=== PATIENT | male | born 1960 | race Caucasian/White ===

== ENCOUNTER 2018-09-23 13:04 | Emergency (ER) | payer SELFPAY ==
[2018-09-23 13:31] VITALS: BP 180/110
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
== END 2018-09-23 13:38 | disposition home or self-care (01) ==
LOC: ED 13:04
DX: M25.512 Pain in left shoulder (principal); V43.52XA Car driver injured in collision with other type car in traffic accident, initial encounter; Y92.410 Unspecified street and highway as the place of occurrence of the external cause; Y99.9 Unspecified external cause status
CPT/HCPCS: 99282

== ENCOUNTER 2018-09-24 03:10 | Emergency (ER) | payer OTHER ==
--- NOTE | 2018-09-24 04:06 | ED ---
GI/ HPI - HPI Summary HPI Summary: This pt is a 58 Y/O M presenting to [facility] with a CC of urinary retention since 1000 09/23/18. He stated that he hasnt urinated in almost 24 hours and that the pain is increasing. He stated that he is currently at a 9/10 in severity. He stated that his flanks have been hurting for the duration of his urinary issues. He denies any SOB, CP, N/V, headaches, and cough. He stated no aggravating or alleviating symptoms. - History of Current Complaint Chief Complaint: EDUrogenitalProblems Time Seen by Provider: 09/24/18 03:36 Stated Complaint: UNABLE TO URINATE PER PT Hx Obtained From: Patient Timing: Constant Severity: Moderate Current Severity: Severe Pain Intensity: 9 Location of Pain: Flank Pain Radiates to: Flank Associated Signs and Symptoms: Positive: Flank Pain. Negative: Nausea, Vomiting , Fever, Chest Pain - Allergy/Home Medications Allergies/Adverse Reactions: Allergies Allergy/AdvReac Type Severity Reaction Status Date / Time No Known Allergies Allergy Verified 09/24/18 03:13 PMH/Surg Hx/FS Hx/Imm Hx Previously Healthy: Yes Respiratory History: Denies: Hx Pneumonia Sensory History: Reports: Hx Contacts or Glasses Opthamlomology History: Reports: Hx Contacts or Glasses Infectious Disease History: No Infectious Disease History: Denies: Traveled Outside the [place] in Last 30 Days - Family History Known Family History: Negative: Diabetes - Social History Alcohol Use: Occasionally Hx Substance Use: No Substance Use Type: Reports: None Hx Tobacco Use: No Smoking Status (MU): Never Smoked Tobacco Review of Systems Negative: Chest Pain Negative: Shortness Of Breath, Cough Negative: Vomiting, Nausea Positive: flank pain, other - Pt is unable to urinate Negative: Headache All Other Systems Reviewed And Are Negative: Yes Physical Exam - Summary Physical Exam Summary: VITAL SIGNS: Reviewed. GENERAL: Patient is a well-developed and nourished male who is lying comfortable in the stretcher. Patient is not in any acute respiratory distress. HEAD AND FACE: No signs of trauma. No ecchymosis, hematomas or skull depressions. No sinus tenderness. EYES: PERRLA, EOMI x 2, No injected conjunctiva, no nystagmus. EARS: Hearing grossly intact. Ear canals and tympanic membranes are within normal limits. MOUTH: Oropharynx within normal limits. NECK: Supple, trachea is midline, no adenopathy, no JVD, no carotid bruit, no c- spine tenderness, neck with full ROM CHEST: Symmetric, no tenderness at palpation LUNGS: Clear to auscultation bilaterally. No wheezing or crackles. CVS: Regular rate and rhythm, S1 and S2 present, no murmurs or gallops appreciated. ABDOMEN: Soft, non-tender. Suprapubic distension. Unable to check his prostate as the pt was uncooperative. No rebound no guarding, and no masses palpated. Bowel sounds are normal. EXTREMITIES: FROM in all major joints, no edema, no cyanosis or clubbing. NEURO: Alert and oriented x 3. No acute neurological deficits. Speech is normal and follows commands. SKIN: Dry and warm Triage Information Reviewed: Yes Vital Signs On Initial Exam: Initial Vitals Temp Pulse Resp BP Pulse Ox 96.5 F 106 16 209/131 96 09/24/18 03:12 09/24/18 03:12 09/24/18 03:12 09/24/18 03:12 09/24/18 03:12 Vital Signs Reviewed: Yes Diagnostics - Vital Signs Vital Signs Temp Pulse Resp BP Pulse Ox 09/24/18 03:12 96.5 F 106 16 209/131 96 - Laboratory Lab Statement: Any lab studies that have been ordered have been reviewed, and results considered in the medical decision making process. GIGU Course/Dx - Course Course Of Treatment: This pt is a 58 Y/O M presenting to [facility] with a CC of urinary retention since 1000 09/23/18. He stated that he hasnt urinated in almost 24 hours and that the pain is increasing. His PE found that he had suprapubic distension and that I was unable to check his prostate as the pt was uncooperative. He will be discharged home with a Dx of urine retention and be insturcted to follow up with urology in the morning. - Diagnoses Provider Diagnoses: Urine retention Discharge - Sign-Out/Discharge Documenting (check all that apply): Patient Departure - discharge Patient Received Moderate/Deep Sedation with Procedure: No - Discharge Plan Condition: Stable Disposition: HOME Patient Education Materials: Urinary Retention in Men (ED) Referrals: Edinson Stack MD [Medical Doctor] - [facility] [Outside] Additional Instructions: PLEASE RETURN TO THE ED IMMEDIATELY FOR WORSENING OR CONCERNING SYMPTOMS AND FOLLOW UP WITH [facility] IN 1-[address]YS[address] ALSO FOLLOW UP WITH DR. STACK, UROLOGY, TO SCHEDULE AN APPOINTMENT FOR FURTHER INVESTIGATION. - Attestation Statements Document Initiated by Scribe: Yes Documenting Scribe: Hank Manriquez Provider For Whom Scribe is Documenting (Include Credential): Clementine Onofre MD Scribe Attestation: I, Hank Manriquez, scribed for Clementine Onofre MD on 09/24/18 at 0409. Status of Scribe Document: Ready
[2018-09-24 04:47] VITALS: BP 160/92
== END 2018-09-24 04:46 | disposition home or self-care (01) ==
LOC: ED 03:10
DX: R33.9 Retention of urine, unspecified (principal)
CPT/HCPCS: 99283

== ENCOUNTER 2022-02-14 09:21 | Inpatient (IN) ==
[2022-02-14 10:13] LABS: ABS Eosinophils 0.1 10^3/ul (0-0.6); ABS Lymphocytes 1.9 10^3/ul (1.0-4.8); ABS Monocytes 1.1 10^3/ul (0-0.8); ABS Neutrophils 9.2 10^3/ul (1.5-7.7); Hematocrit 42 % (42-52); Hemoglobin 14.1 g/dL (14.0-18.0); Lymphocyte % 15.1 %; Mean Corpuscular HGB Conc 34 g/dL (31-36); Mean Corpuscular Hemoglobin 29 pg (27-31); Mean Corpuscular Volume 86 fL (80-94); Mean Platelet Volume 7.1 fL (7.4-10.4); Platelet Count 285 10^3/uL (150-450); Red Blood Count 4.88 10^6 /uL (4.18-5.48); Red Cell Distribution Width 14 % (10-15); White Blood Count 12.3 10^3/uL (3.5-10.8)
[2022-02-14 10:56] LABS: Albumin 4.6 g/dL (3.2-5.2); Calcium 9.5 mg/dL (8.6-10.3); Potassium 4.3 mmol/L (3.5-5.0); Total Bilirubin 0.7 mg/dL (0.2-1.0)
[2022-02-14 11:02] LABS: Albumin/Globulin Ratio 1.7 (1-3); Globulin 2.7 g/dL (2-4); Total Protein 7.3 g/dL (6.4-8.9); eGFR CKD-EPI 46.4 (>60)
[2022-02-14 11:41] LABS: High Sensitivity Troponin 1 Hr 6 pg/mL (<20)
[2022-02-14 11:49] LABS: Free T4 0.83 ng/dL (0.61-1.12)
[2022-02-14] MEDS ORDERED: Lactated Ringers 1000 ml BAG 1,000 ML IV ONE (13:42)
[2022-02-14] MEDS ORDERED: Lactated Ringers 1000 ml BAG 1,000 ML IV SCH (14:00)
[2022-02-14] MEDS ORDERED: ceFAZolin 2 GM in NS PREMIX 2 GM/100 ML BAG IVPB ONE (14:20)
[2022-02-14 17:33] LABS: Magnesium 1.9 mg/dL (1.9-2.7)
[2022-02-14 17:39] LABS: C Reactive Protein 7.56 mg/L (<8.01)
[2022-02-15 04:06] LABS: Urine Appearance Clear; Urine Bilirubin Negative (Negative); Urine Blood Negative (Negative); Urine Color Straw; Urine Glucose Negative (Negative); Urine Ketones Negative (Negative); Urine Nitrite Negative (Negative); Urine Protein Negative (Negative); Urine Specific Gravity 1.012 (1.002-1.030); Urine Urobilinogen Negative (Negative)
[2022-02-15 06:07] LABS: Hematocrit 42 % (42-52); Mean Corpuscular HGB Conc 34 g/dL (31-36); Mean Corpuscular Hemoglobin 29 pg (27-31); Mean Corpuscular Volume 86 fL (80-94); Mean Platelet Volume 7.3 fL (7.4-10.4); Platelet Count 262 10^3/uL (150-450); Red Blood Count 4.85 10^6 /uL (4.18-5.48); Red Cell Distribution Width 14 % (10-15); White Blood Count 11.3 10^3/uL (3.5-10.8)
[2022-02-15 06:16] LABS: Activated Partial Thrombo Time 30.1 seconds (26.0-38.0); INR 1.05 (0.88-1.18)
[2022-02-15 06:51] LABS: Calcium 9.4 mg/dL (8.6-10.3); Magnesium 1.9 mg/dL (1.9-2.7); Potassium 4.2 mmol/L (3.5-5.0)
[2022-02-15 06:57] LABS: eGFR CKD-EPI 80.7 (>60)
[2022-02-15] MEDS ORDERED: Midazolam 5 mg/5 ml VIAL 1 mg/ml 5 ml VIAL (5 mg) ONE ×2 (08:45→09:27)
[2022-02-15] MEDS ORDERED: fentaNYL 100 mcg/2 ml 50 MCG/ML VIAL ONE (08:45)
[2022-02-15] MEDS ORDERED: Flumazenil 0.5 mg/5 ml 0.1 MG/ML 5 ml VIAL ONE (08:46)
[2022-02-15] MEDS ORDERED: Naloxone 0.4 mg VIAL 0.4 mg/ml 1 ml VIAL ONE (08:46)
[2022-02-15] MEDS ORDERED: Iohexol 180 (CONTRAST) 10 ML SDV IV ONE (08:47)
[2022-02-15] MEDS: ceFAZolin 2 GM in NS PREMIX 2 GM/100 ML BAG IVPB ONE ×2 (09:06→11:08)
[2022-02-15] MEDS ORDERED: Iohexol 300 (CONTRAST) 10 ML SDV ONE (09:08)
[2022-02-15] MEDS ORDERED: Lidocaine 1% VIAL 10 MG/ML VIAL 30 ML ONE (09:21)
[2022-02-15] MEDS ORDERED: Enoxaparin 40 MG/0.4 ML SYR SUBCUT SCH (17:00)
[2022-02-15] MEDS: ceFAZolin 1 GM ADVAN 1 GM in NS 0.9% 50 ML 50 ML IVPB SCH (17:21)
[2022-02-16] MEDS: ceFAZolin 1 GM ADVAN 1 GM in NS 0.9% 50 ML 50 ML IVPB SCH ×2 (00:07→10:08)
[2022-02-16 06:01] LABS: Hematocrit 40 % (42-52); Hemoglobin 13.2 g/dL (14.0-18.0); Mean Corpuscular HGB Conc 33 g/dL (31-36); Mean Corpuscular Hemoglobin 28 pg (27-31); Mean Corpuscular Volume 86 fL (80-94); Platelet Count 229 10^3/uL (150-450); Red Blood Count 4.66 10^6 /uL (4.18-5.48); Red Cell Distribution Width 13 % (10-15); White Blood Count 12.4 10^3/uL (3.5-10.8)
[2022-02-16 06:39] LABS: Calcium 9.1 mg/dL (8.6-10.3); Magnesium 1.9 mg/dL (1.9-2.7); eGFR CKD-EPI 98.7 (>60)
[2022-02-16 12:40] VITALS: BP 143/82
[2022-02-18 17:40] LABS: Anaplasma phagocytophilum Negative (Negative); B. miyamotoi PCR, B Negative (Negative); Babesia divergens/MO-1 Negative (Negative); Babesia ducani Negative (Negative); Ehrlichia chaffeensis Negative (Negative); Ehrlichia ewingii/canis Negative (Negative); Ehrlichia muris eauclairensis Negative (Negative)
== END 2022-02-16 15:20 | disposition home health service (06) | DRG 243 ==
LOC: EDHOLD 09:21 → ED 09:21 → SUATTDRO 12:15 → EDHOLD 14:56 → MEDTELE 15:16 → SUATTDRO 02-15 10:00
PROVIDERS: ADMIT Internal Medicine; ATTEND Internal Medicine

== ENCOUNTER 2022-07-21 08:34 | Observation (INO) ==
[~2022-07-21 08:34] MED LIST: Buffered Lidocaine 1% SYRIN 1 ml INTRADERM ONE; Lactated Ringers 1000 ml BAG 1,000 ML IV SCH; Naloxone 0.4 mg VIAL 0.4 mg/ml 1 ml VIAL IV PRN; Ondansetron 4 mg VIAL 2 MG/ML 2 ml VIAL IV PRN; ROPIVACAINE 5 MG/ML 30 ML BTL (0.5%) ONE; Tranexamic Acid 1,000 MG in NS 0.9% 50 ML IV ONE; fentaNYL 100 mcg/2 ml 50 MCG/ML VIAL IV PRN
[2022-07-21] MEDS ORDERED: fentaNYL 100 mcg/2 ml 50 MCG/ML VIAL ONE ×2 (08:41→11:27)
[2022-07-21] MEDS ORDERED: Midazolam 2 mg/2 ml VIAL 1 mg/ml 2 ml VIAL (2 mg) ONE ×2 (08:41→09:41)
[2022-07-21] MEDS ORDERED: Propofol 10 MG/ML 20 ML BTL ONE ×2 (08:41→12:27)
[2022-07-21] MEDS ORDERED: Lidocaine 2% PF 5 ML VIAL ONE (08:41)
[2022-07-21] MEDS ORDERED: Famotidine IV 10 MG/ML 2 ml VIAL (20 mg) ONE (09:16)
[2022-07-21] MEDS ORDERED: ceFAZolin 2 GM in NS PREMIX 2 GM/100 ML BAG IVPB ONE (09:17)
[2022-07-21] MEDS ORDERED: Dexamethasone IV 4 MG/ML VIAL 1 ml VIAL ONE (09:41)
[2022-07-21] MEDS ORDERED: ROPIVACAINE 5 MG/ML 30 ML BTL (0.5%) ONE ×2 (09:41→10:33)
[2022-07-21 09:55] LABS: Rapid COVID-19 Molecular Undetected (Undetected)
[2022-07-21] MEDS ORDERED: Lactulose 30 ml UDC PO PRN (12:01)
[2022-07-21] MEDS ORDERED: Morphine 2 MG/ML SYRINGE IV PRN (12:01)
[2022-07-21] MEDS ORDERED: Magnesium Hydroxide LIQ 30 ML UDC PO PRN (12:01)
[2022-07-21] MEDS ORDERED: Ondansetron ODT 4 mg TAB 4 MG TAB PO PRN (12:01)
[2022-07-21] MEDS ORDERED: Ondansetron 4 mg VIAL 2 MG/ML 2 ml VIAL IV PRN (12:01)
[2022-07-21] MEDS ORDERED: Phenylephrine 40 mcg/mL 10mL (400mcg) SYRINGE ONE (12:26)
[2022-07-21] MEDS ORDERED: Lactated Ringers 1000 ml BAG 1,000 ML IV SCH (13:00)
[2022-07-21] MEDS: ceFAZolin 1 GM ADVAN 1 GM in NS 0.9% 50 ML 50 ML IVPB SCH (20:18)
[2022-07-21] MEDS: Magnesium Hydroxide LIQ 30 ML UDC PO SCH (20:23)
[2022-07-22] MEDS: ceFAZolin 1 GM ADVAN 1 GM in NS 0.9% 50 ML 50 ML IVPB SCH ×2 (03:01→11:10)
[2022-07-22 06:31] LABS: Hematocrit 31.6 % (38-53); Hemoglobin 10.9 g/dL (13.2-16.3); Mean Platelet Volume 7.2 fL (7.5-11.2); Platelet Count 246 10^3/uL (150-450)
[2022-07-22 06:46] LABS: Calcium 8.7 mg/dL (8.6-10.3); Creatinine, Serum 0.91 mg/dL (0.67-1.17); eGFR CKD-EPI 94.1 (>60)
[2022-07-22] MEDS ORDERED: Vitamin THERAPEUTIC TAB PO SCH (09:00)
[2022-07-22] MEDS: Magnesium Hydroxide LIQ 30 ML UDC PO SCH (09:11)
[2022-07-22 10:46] VITALS: BP 134/83
== END 2022-07-22 14:53 | disposition home or self-care (01) ==
LOC: SSU 08:34 → OR 08:34
PROVIDERS: ADMIT Orthopaedic Surgery Adult Reconstructive Orthopaedic Surgery; ATTEND Orthopaedic Surgery Adult Reconstructive Orthopaedic Surgery